=== PATIENT | male | born 1970 | race American Indian/Alaskan Native ===

== ENCOUNTER 2019-10-05 20:40 | Emergency (ER) | payer SELFPAY ==
--- NOTE | 2019-10-05 22:03 | Event Note ---
ED Screening Note Date of service: 10/05/19 Time: 22:01 ED Screening Note: This is a 49 y.o. M. that presents to the ER with n/v/d and lower abdominal pain x 1 week. This initial assessment/diagnostic orders/clinical plan/treatment(s) is/are subject to change based on patients health status, clinical progression and re- assessment by fellow clinical providers in the ED. Further treatment and workup at subsequent clinical providers discretion. Patient/guardian urged not to elope from the ED as their condition may be serious if not clinically assessed and managed. Initial orders include: Labs and CT of abdomen
[2019-10-05 23:36] LABS: Basophils % (Auto) 0.3 % (0.0-1.8); Eosinophils % (Auto) 0.2 % (0.0-4.3); Hematocrit 40.9 % (35.5-45.6); Hemoglobin 13.8 gm/dl (11.8-15.2); Lymphocytes # (Auto) 1.7 K/mm3 (1.2-5.4); Mean Corpuscular HGB Conc 34 % (32-34); Mean Corpuscular Volume 89 fl (84-94); Monocytes # (Auto) 0.5 K/mm3 (0.0-0.8); Monocytes % (Auto) 5.8 % (0.0-7.3); Platelet Count 378 K/mm3 (140-440); Red Blood Count 4.57 M/mm3 (3.65-5.03); Red Cell Distribution Width 16.8 % (13.2-15.2)
[2019-10-06 00:02] LABS: Alanine Aminotransferase 21 units/L (7-56); Albumin 3.8 g/dL (3.9-5); BUN/Creatinine Ratio 11; Blood Urea Nitrogen 11 mg/dL (9-20); Calcium 9.3 mg/dL (8.4-10.2); Hemolysis Index 6
--- NOTE | 2019-10-06 00:24 | Cat Scan Report ---
CT of the abdomen and pelvis with contrast INDICATION: Lower abdominal pain COMPARISON: None FINDINGS: Lung bases are clear. Small hepatic low densities appear to be cysts. Spleen, pancreas, and kidneys show no definite abnormalities. There is a 3.3 x 2.6 cm heterogeneously enhancing mass in th e right adrenal gland. There may be a smaller similar lesion in the left adrenal gland. No fluid or a denopathy in the upper abdomen. No definite gallbladder or biliary tree abnormality. CT of the pelvis shows a normal appendix. No bowel obstruction is seen. No diverticulosis or divertic ulitis. No definite enteritis or colitis. There is a small amount of free pelvic fluid. No significan t skeletal lesion. IMPRESSION: Right and possibly left adrenal masses. There is minimal pelvic fluid. Automated exposure control was utilized to diminish radiation dose. Signer Name: Richard Watkins MD Signed: 10/06/2019 12:19 AM Workstation Name: [id number]
[2019-10-06] MEDS ORDERED: ONDANSETRON 4 MG/2 ML INJ IV ONE (00:30)
[2019-10-06] MEDS ORDERED: DICYCLOMINE 20 MG/2 ML INJ IM ONE ×2 (00:30→00:41)
[2019-10-06] MEDS ORDERED: SODIUM CHLORIDE 0.9% 500 ML 500 ML IV ONE (00:30)
[2019-10-06] MEDS ORDERED: ONDANSETRON 4 MG/2 ML INJ ONE (00:40)
[2019-10-06] MEDS ORDERED: SODIUM CHLORIDE 0.9% 500 ML 500 ML ONE (00:40)
--- NOTE | 2019-10-06 01:02 | Emergency Department Report ---
ED Abdominal Pain HPI - General Chief Complaint: Abdominal Pain Stated Complaint: ABDOMINAL PAIN Time Seen by Provider: 10/05/19 22:01 Source: patient, EMS Mode of arrival: Ambulatory Limitations: No Limitations - History of Present Illness Initial Comments: 49-year-old male presents to ED with abdominal pain. Patient states the pain is located across the lower abdomen, below the bellybutton. States pain is crampy in nature, associated with nausea, vomiting, diarrhea, and constipation. Patient denies any urinary or alleviating factors. Patient states this pain has been ongoing for 2-3 months. States he has been to several emergency rounds [facility] and has had several workups, including prior x-rays and CT scans. Patient states no one has found a source for his pain. He reports he has a follow-up appointment with a customer service advocate next month. Patient returns today due to exacerbation of the same pain that he has been experiencing over the last few months. Patient reports he stopped smoking marijuana 3 months ago. MD Complaint: abdominal pain -: month(s) (3) Location: suprapubic Radiation: none Migration to: no migration Severity: moderate Severity scale (0 -10): 10 Quality: cramping Consistency: intermittent Improves With: nothing Worsens With: nothing Associated Symptoms: nausea, vomiting, diarrhea, constipation. denies: fever, dysuria - Related Data Previous Rx's Medication Instructions Recorded Last Taken Type Dicyclomine [Bentyl] 20 mg PO QID PRN #20 tablet 10/06/19 Unknown Rx Ondansetron [Zofran Odt] 4 mg PO Q8HR PRN #20 tab.rapdis 10/06/19 Unknown Rx Promethazine [Phenergan TAB] 25 mg PO Q6HR PRN #20 tab 10/06/19 Unknown Rx Allergies Allergy/AdvReac Type Severity Reaction Status Date / Time No Known Allergies Allergy Verified 10/05/19 20:42 ED Review of Systems ROS: Stated complaint: ABDOMINAL PAIN Other details as noted in HPI Comment: All other systems reviewed and negative Constitutional: denies: chills, fever Gastrointestinal: abdominal pain, nausea, vomiting, diarrhea, constipation Genitourinary: denies: dysuria, frequency ED Past Medical Hx - Past Medical History Previous Medical History?: No - Surgical History Past Surgical History?: No - Social History Smoking Status: Current Every Day Smoker Substance Use Type: None - Medications Home Medications: Home Medications Medication Instructions Recorded Confirmed Last Taken Type Dicyclomine [Bentyl] 20 mg PO QID PRN #20 tablet 10/06/19 Unknown Rx Ondansetron [Zofran Odt] 4 mg PO Q8HR PRN #20 tab.rapdis 10/06/19 Unknown Rx Promethazine [Phenergan TAB] 25 mg PO Q6HR PRN #20 tab 10/06/19 Unknown Rx ED Physical Exam - General Limitations: No Limitations General appearance: alert, in no apparent distress - Head Head exam: Present: atraumatic, normocephalic - Eye Eye exam: Present: normal appearance, EOMI - ENT ENT exam: Present: mucous membranes moist - Neck Neck exam: Present: normal inspection - Respiratory Respiratory exam: Present: normal lung sounds bilaterally. Absent: respiratory distress - Cardiovascular Cardiovascular Exam: Present: regular rate, normal rhythm - GI/Abdominal GI/Abdominal exam: Present: soft, tenderness (mild diffuse tenderness). Absent: distended, guarding, rebound - Extremities Exam Extremities exam: Present: normal inspection - Neurological Exam Neurological exam: Present: alert, oriented X3 - Psychiatric Psychiatric exam: Present: normal affect, normal mood - Skin Skin exam: Present: warm, dry, intact, normal color ED Course Vital Signs 10/05/19 10/06/19 10/06/19 20:44 00:02 01:00 Temperature 98.4 F 98.6 F Pulse Rate 100 H 80 78 Respiratory 18 15 17 Rate Blood Pressure 129/93 139/76 Blood Pressure 166/84 [Left] O2 Sat by Pulse 99 99 97 Oximetry ED Medical Decision Making - Lab Data Result diagrams: 10/05/19 22:49 10/05/19 22:49 - Radiology Data Radiology results: report reviewed, image reviewed - Medical Decision Making 49 year-old male with chronic abdominal pain. Labs and CT ordered from triage. Workup is unremarkable. CT shows possible adrenal gland masses bilaterally. Patient states he was informed of this finding from a previous CT that he had recently. Reportedly has upcoming appointment with GI next month. Prescriptions given. Return precautions given. Will discharge home at this time. - Differential Diagnosis chronic abdominal pain Critical care attestation.: If time is entered above; I have spent that time in minutes in the direct care of this critically ill patient, excluding procedure time. ED Disposition Clinical Impression: Abdominal pain, Mass of adrenal gland Disposition: TO HOME OR SELFCARE Is pt being admited?: No Condition: Stable Instructions: Abdominal Pain (ED) Prescriptions: Dicyclomine [Bentyl] 20 mg PO QID PRN #20 tablet PRN Reason: abdominal pain Promethazine [Phenergan TAB] 25 mg PO Q6HR PRN #20 tab PRN Reason: Nausea Ondansetron [Zofran Odt] 4 mg PO Q8HR PRN #20 tab.rapdis PRN Reason: Vomiting Referrals: MIAH ABDULLAHI MD [Primary Care Provider] - 3-5 Days [facility] [Outside] - 3-5 Days [facility] [Outside] - 3-5 Days [facility] [Provider Group] - 3-5 Days [facility] [Provider Group] - 3-5 Days Time of Disposition: 01:47
[2019-10-06 01:15] LABS: Bilirubin,Urine NEG (Negative); Blood,Urine NEG (Negative); Color,Urine Yellow (Yellow); Mucus,Urine FEW /HPF
[2019-10-06 01:54] VITALS: BP 139/76
== END 2019-10-06 02:04 | disposition home or self-care (01) ==
LOC: ED 20:40
DX: E27.9 Disorder of adrenal gland, unspecified (principal); R19.7 Diarrhea, unspecified; R11.2 Nausea with vomiting, unspecified; F17.200 Nicotine dependence, unspecified, uncomplicated; Z79.899 Other long term (current) drug therapy
CPT/HCPCS: 36415; 74177; 80053; 81001; 83690; 85025; 87086; 96361; 96372; 96374; 99284; J0500; J2405; J7040; Q9967